=== PATIENT | male | born 1960 | race African-American/Black ===

== ENCOUNTER 2019-09-02 18:35 | Emergency (ER) | payer MEDICAID ==
[2019-09-02] MEDS ORDERED: QUET300T5 PO (18:57)
[2019-09-02] MEDS ORDERED: ARIP30TA2 PO (18:57)
== END 2019-09-02 19:17 | disposition left against medical advice (07) ==
LOC: ER 18:35
DX: Z53.21 Procedure and treatment not carried out due to patient leaving prior to being seen by health care provider (principal)